=== PATIENT | male | born 1995 | race Caucasian/White ===

== ENCOUNTER 2017-04-15 20:58 | Emergency (ER) | payer OTHER ==
[~2017-04-15] VITALS: Ht 177.8 cm; Wt 79.4 kg
[~2017-04-15 20:58] MED LIST: ADDERALL XR15 MG PO; ADDERALL10 MG PO; AMOXICILLIN500 MG PO; AMOXIL500 MG PO; ANAPROX DS550 MG PO; BACTRIM DS 8001 TA1 PO; BUSPAR15 MG PO; CLARITIN10 MG PO; DARVOCET N 1001 TAB PO; FLAGYL500 MG PO; GEODON20 MG PO; KLONOPIN1 MG PO; LUVOX50 MG PO; MOTRIN600 MG PO; MOTRIN800 MG PO; NAPROSYN500 MG PO; RISPERDAL1 MG PO; ROBAXIN500 MG PO; VIBRAMYCIN100 MG PO; VISTARIL25 M1 PO; ZANTAC150 MG PO; ZITHROMAX Z PA250 MG PO; ZOFRAN ODT4 MG SL
[2017-04-15] MEDS ORDERED: ZYRTEC10 MG PO (22:23)
[2017-04-15] MEDS ORDERED: AMOXICILLIN500 M2 PO (22:23)
== END 2017-04-15 22:32 | disposition home or self-care (01) ==
LOC: ED 20:58
DX: J20.9 Acute bronchitis, unspecified (principal); F17.200 Nicotine dependence, unspecified, uncomplicated; F12.10 Cannabis abuse, uncomplicated; Z98.890 Other specified postprocedural states; Z79.899 Other long term (current) drug therapy

== ENCOUNTER 2018-01-23 13:36 | Emergency (ER) | payer OTHER ==
[~2018-01-23] VITALS: Ht 182.8 cm; Wt 68.0 kg
[~2018-01-23 13:36] MED LIST changes: +AMOXICILLIN500 M2 PO; +ZYRTEC10 MG PO
== END 2018-01-23 16:14 | disposition home or self-care (01) ==
LOC: ED 13:36
DX: S01.02XA Laceration with foreign body of scalp, initial encounter (principal); S09.90XA Unspecified injury of head, initial encounter; F17.200 Nicotine dependence, unspecified, uncomplicated; F12.10 Cannabis abuse, uncomplicated; Z23 Encounter for immunization; Z98.890 Other specified postprocedural states; Z79.899 Other long term (current) drug therapy; Y04.0XXA Assault by unarmed brawl or fight, initial encounter; Y93.89 Activity, other specified; Y92.89 Other specified places as the place of occurrence of the external cause; Y99.9 Unspecified external cause status

== ENCOUNTER 2018-01-30 11:35 | Emergency (ER) | payer OTHER ==
[~2018-01-30] VITALS: Ht 182.8 cm; Wt 70.3 kg
== END 2018-01-30 12:20 | disposition home or self-care (01) ==
LOC: ED 11:35
DX: S01.01XD Laceration without foreign body of scalp, subsequent encounter (principal); F17.200 Nicotine dependence, unspecified, uncomplicated; F12.10 Cannabis abuse, uncomplicated; Z98.890 Other specified postprocedural states; Z79.899 Other long term (current) drug therapy; X58.XXXD Exposure to other specified factors, subsequent encounter

== ENCOUNTER 2018-02-15 13:40 | Emergency (ER) | payer OTHER ==
[~2018-02-15] VITALS: Ht 182.8 cm; Wt 70.3 kg
[2018-02-15] MEDS ORDERED: PREDNISONE10 MG PO (13:44)
== END 2018-02-15 13:52 | disposition home or self-care (01) ==
LOC: ED 13:40
DX: L23.7 Allergic contact dermatitis due to plants, except food (principal); F17.200 Nicotine dependence, unspecified, uncomplicated; Z79.899 Other long term (current) drug therapy

== ENCOUNTER 2020-02-13 07:09 | Emergency (ER) | payer OTHER ==
[~2020-02-13] VITALS: Ht 182.8 cm; Wt 83.9 kg
[~2020-02-13 07:09] MED LIST changes: +PREDNISONE10 MG PO
[2020-02-13] MEDS ORDERED: NAPROXEN250 MG PO (08:56)
[2020-02-13] MEDS ORDERED: TYLENOL325 M1 PO (08:56)
== END 2020-02-13 09:30 | disposition home or self-care (01) ==
LOC: ED 07:09
DX: S06.0X9A Concussion with loss of consciousness of unspecified duration, initial encounter (principal); S90.31XA Contusion of right foot, initial encounter; S00.01XA Abrasion of scalp, initial encounter; S00.03XA Contusion of scalp, initial encounter; F32.9 Major depressive disorder, single episode, unspecified; F17.200 Nicotine dependence, unspecified, uncomplicated; V89.2XXA Person injured in unspecified motor-vehicle accident, traffic, initial encounter; Y93.89 Activity, other specified; Y92.89 Other specified places as the place of occurrence of the external cause; Y99.8 Other external cause status

== ENCOUNTER 2020-03-04 21:44 | Emergency (ER) | payer OTHER ==
[~2020-03-04] VITALS: Wt 81.6 kg
[~2020-03-04 21:44] MED LIST changes: +NAPROXEN250 MG PO; +TYLENOL325 M1 PO
[2020-03-04] MEDS ORDERED: PREDNISONE10 MG PO (22:02)
== END 2020-03-04 22:35 | disposition home or self-care (01) ==
LOC: ED 21:44
DX: L25.5 Unspecified contact dermatitis due to plants, except food (principal); F17.200 Nicotine dependence, unspecified, uncomplicated

== ENCOUNTER 2020-05-31 10:19 | Emergency (ER) | payer OTHER ==
[2020-05-31] MEDS ORDERED: NORCO 5-325 TA1 EACH PO ×2 (14:39)
[2020-06-01] MEDS ORDERED: TIMOLOL MALEATE10 M1 OPH (13:18)
[2020-06-01] MEDS ORDERED: LATANOPROST2.5 ML OP (13:18)
[2020-06-03] MEDS ORDERED: HYDROCODONE-AC1 EAC1 PO (10:36)
== END 2020-05-31 15:01 | disposition home or self-care (01) ==
LOC: ED 10:19
DX: S82.143A Displaced bicondylar fracture of unspecified tibia, initial encounter for closed fracture (principal); Z87.891 Personal history of nicotine dependence; W18.39XA Other fall on same level, initial encounter; Y93.89 Activity, other specified; Y92.89 Other specified places as the place of occurrence of the external cause; Y99.8 Other external cause status

== ENCOUNTER → 2020-06-01 | Outpatient (CLI) | payer OTHER ==
[~2020-06-01] MED LIST changes: +HYDROCODONE-AC1 EAC1 PO; +LATANOPROST2.5 ML OP; +NORCO 5-325 TA1 EACH PO; +TIMOLOL MALEATE10 M1 OPH
[2020-06-01 11:35] LABS: BASO # 0.1 10*3/uL (0.0-0.1); BASO % 0.8 % (0.0-1.0); EOS # 0.6 10*3/uL (0.0-0.4); EOS % 5.7 % (1.0-4.0); LYMPH # 2.9 10*3/uL (1.3-4.4); LYMPH % 26.7 % (27.0-41.0); MEAN CELL VOLUME 89.1 fl (80.0-94.0); MEAN CORPUSCULAR HGB 29.8 pg (27.0-31.0); MEAN CORPUSCULAR HGB CONC 33.4 g/dl (33.0-37.0); MEAN PLATELET VOLUME 9.1 fl (9.6-12.3); MONO # 1.1 10*3/uL (0.1-1.0); MONO % 10.6 % (3.0-9.0); NEUT % 55.9 % (47.0-73.0); PLATELET COUNT AUTOMATED 322 10*3/uL (130-400); RED CELL DISTRI WIDTH 11.9 % (0-14.5); WHITE BLOOD COUNT 10.8 10*3/uL (4.8-10.8)
== END | disposition home or self-care (01) ==
LOC: RAD 09:25 → LAB 09:25
PROVIDERS: ATTEND Orthopaedic Surgery
DX: Z01.89 Encounter for other specified special examinations (principal); Z20.828 Contact with and (suspected) exposure to other viral communicable diseases

== ENCOUNTER → 2020-06-03 | Day surgery (SDC) | payer OTHER ==
[~2020-06-03] VITALS: Ht 152.4 cm; Wt 86.2 kg
[2020-06-03 10:37] VITALS: BP 132/84
[2020-06-03 14:37] VITALS: BP 145/86
[2020-06-03 14:52] VITALS: BP 136/101
[2020-06-03 15:07] VITALS: BP 137/98
[2020-06-03 15:26] VITALS: BP 137/95
[2020-06-03 15:37] VITALS: BP 146/91
== END | disposition home or self-care (01) ==
LOC: SDC 06-01 13:15
PROVIDERS: ATTEND Orthopaedic Surgery
DX: S82.122A Displaced fracture of lateral condyle of left tibia, initial encounter for closed fracture (principal); S83.282A Other tear of lateral meniscus, current injury, left knee, initial encounter; S83.512A Sprain of anterior cruciate ligament of left knee, initial encounter; M17.12 Unilateral primary osteoarthritis, left knee; Z98.890 Other specified postprocedural states; F17.210 Nicotine dependence, cigarettes, uncomplicated; F90.9 Attention-deficit hyperactivity disorder, unspecified type; F31.9 Bipolar disorder, unspecified; F20.9 Schizophrenia, unspecified; F42.9 Obsessive-compulsive disorder, unspecified; Z79.899 Other long term (current) drug therapy; W19.XXXA Unspecified fall, initial encounter; Y93.89 Activity, other specified; Y92.89 Other specified places as the place of occurrence of the external cause; Y99.0 Civilian activity done for income or pay

== ENCOUNTER → 2020-06-16 | Outpatient (CLI) | payer OTHER | END | disposition home or self-care (01) | LOC: ORTHO 00:38 | PROVIDERS: ATTEND Orthopaedic Surgery | DX: S82.122D Displaced fracture of lateral condyle of left tibia, subsequent encounter for closed fracture with routine healing (principal); X58.XXXD Exposure to other specified factors, subsequent encounter ==

== ENCOUNTER → 2020-07-09 | Outpatient (CLI) | payer OTHER | END | disposition home or self-care (01) | LOC: ORTHO 00:38 | PROVIDERS: ATTEND Orthopaedic Surgery | DX: S82.122D Displaced fracture of lateral condyle of left tibia, subsequent encounter for closed fracture with routine healing (principal); Z98.890 Other specified postprocedural states; X08.8XXD Exposure to other specified smoke, fire and flames, subsequent encounter ==

== ENCOUNTER → 2020-09-07 | Outpatient (CLI) | payer OTHER | END | disposition home or self-care (01) | LOC: ORTHO 13:25 | PROVIDERS: ATTEND Orthopaedic Surgery | DX: S82.122D Displaced fracture of lateral condyle of left tibia, subsequent encounter for closed fracture with routine healing (principal); X58.XXXD Exposure to other specified factors, subsequent encounter ==

== ENCOUNTER 2021-04-25 15:34 | Emergency (ER) | payer OTHER ==
[~2021-04-25] VITALS: Ht 185.4 cm; Wt 90.7 kg
[2021-04-25] MEDS ORDERED: SEPTDS PO (18:18)
[2021-04-25] MEDS ORDERED: CEPHALEXIN500 M1 PO (18:18)
== END 2021-04-25 18:48 | disposition home or self-care (01) ==
LOC: ED 15:34
DX: L08.9 Local infection of the skin and subcutaneous tissue, unspecified (principal); F17.200 Nicotine dependence, unspecified, uncomplicated; Z79.899 Other long term (current) drug therapy

== ENCOUNTER → 2021-05-04 | Outpatient (CLI) | payer OTHER ==
[~2021-05-04] MED LIST changes: +CEPHALEXIN500 M1 PO; +SEPTDS PO
== END | disposition home or self-care (01) ==
LOC: COVID19 15:28
PROVIDERS: ATTEND Internal Medicine
DX: U07.1 COVID-19 (principal)

== ENCOUNTER → 2021-05-10 | Outpatient (CLI) | payer OTHER | END | disposition home or self-care (01) | LOC: COVID19 15:10 | PROVIDERS: ATTEND Internal Medicine | DX: U07.1 COVID-19 (principal) ==

== ENCOUNTER → 2021-05-16 | Outpatient (CLI) | payer OTHER | END | disposition home or self-care (01) | LOC: COVID19 15:59 | PROVIDERS: ATTEND Internal Medicine | DX: Z11.52 Encounter for screening for COVID-19 (principal) ==

== ENCOUNTER → 2021-07-06 | Outpatient (CLI) | payer OTHER | END | disposition home or self-care (01) | LOC: ORTHO 00:45 | PROVIDERS: ATTEND Orthopaedic Surgery | DX: S82.122D Displaced fracture of lateral condyle of left tibia, subsequent encounter for closed fracture with routine healing (principal); X58.XXXD Exposure to other specified factors, subsequent encounter ==

== ENCOUNTER 2022-09-04 06:46 | Emergency (ER) | payer OTHER ==
[~2022-09-04] VITALS: Ht 182.8 cm; Wt 83.9 kg
[2022-09-04 08:05] LABS: BASO # 0.1 10*3/uL (0.0-0.1); BASO % 0.4 % (0.0-1.0); EOS # 0.2 10*3/uL (0.0-0.4); EOS % 1.1 % (1.0-4.0); HEMATOCRIT 43.1 % (42.0-52.0); LYMPH # 2.2 10*3/uL (1.3-4.4); MEAN CELL VOLUME 87.8 fl (80.0-94.0); MEAN CORPUSCULAR HGB CONC 35.3 g/dl (33.0-37.0); MEAN PLATELET VOLUME 8.7 fl (9.6-12.3); MONO # 1.2 10*3/uL (0.1-1.0); MONO % 7.4 % (3.0-9.0); NEUT # 12.3 10*3/uL (2.3-7.9); NEUT % 76.9 % (47.0-73.0); PLATELET COUNT AUTOMATED 349 10*3/uL (130-400); RED BLOOD COUNT 4.91 10*6/uL (4.50-5.90); RED CELL DISTRI WIDTH 11.9 % (0-14.5)
[2022-09-04 08:31] LABS: ALKALINE PHOSPHATASE 83 U/L (46-116); BUN 14 mg/dl (9-23); CHLORIDE 101 mmol/L (98-107); LIPASE 23 U/L (12-53); POTASSIUM 3.5 mmol/L (3.4-5.1); SGPT/ALT 15 U/L (10-49); TOTAL PROTEIN 7.4 gm/dL (6.0-8.0)
[2022-09-04] MEDS ORDERED: PEPCID20 MG PO (11:40)
== END 2022-09-04 11:44 | disposition home or self-care (01) ==
LOC: ED 06:46
PROVIDERS: Emergency Medicine
DX: R10.13 Epigastric pain (principal); Z98.890 Other specified postprocedural states; F10.20 Alcohol dependence, uncomplicated; Z87.891 Personal history of nicotine dependence; F12.10 Cannabis abuse, uncomplicated

== ENCOUNTER 2024-04-15 00:22 | Emergency (ER) | payer MEDICAID ==
[~2024-04-15] VITALS: Wt 77.1 kg
[~2024-04-15 00:22] MED LIST changes: +PEPCID20 MG PO
[2024-04-15] MEDS ORDERED: EPINEPHrine Hydrochloride 1 MG/10 ML SYR IV ONE (13:16)
== END 2024-04-15 02:02 ==
LOC: ED 00:26
DX: S21.231A Puncture wound without foreign body of right back wall of thorax without penetration into thoracic cavity, initial encounter (principal); I46.9 Cardiac arrest, cause unspecified; F90.9 Attention-deficit hyperactivity disorder, unspecified type; F31.9 Bipolar disorder, unspecified; F12.10 Cannabis abuse, uncomplicated; F17.200 Nicotine dependence, unspecified, uncomplicated; Z98.890 Other specified postprocedural states; W34.00XA Accidental discharge from unspecified firearms or gun, initial encounter; Y93.89 Activity, other specified; Y92.096 Garden or yard of other non-institutional residence as the place of occurrence of the external cause; Y99.8 Other external cause status